=== PATIENT | female | born 1995 | race Caucasian/White ===

== ENCOUNTER 2017-01-14 11:05 | Emergency (ER) | payer OTHER ==
[2017-01-14 11:19] VITALS: BP 109/55; PULSE 64; TEMP 98.1; BMI 31.8
--- NOTE | 2017-01-14 12:01 | PDOC ---
History of Present Illness - General Chief Complaint: Back Pain Stated Complaint: BACK PAIN Time Seen by Provider: 01/14/17 11:33 History Source: Patient Exam Limitations: No Limitations - History of Present Illness Initial Comments: 01/14/17 11:56 21 yr female with c/o low back pain for 3 days no urine complaints, c/o constipation. Pt denies abd pain neg nvd. Pt has history of back pain in the past history of spinal stenosis, states toradol helps her pain. Pt has no other medical history. Severity: mild Past History - Past Medical History Allergies/Adverse Reactions: Allergies Allergy/AdvReac Type Severity Reaction Status Date / Time No Known Allergies Allergy Verified 01/14/17 11:12 Home Medications: Ambulatory Orders Cyclobenzaprine HCl [Flexeril -] 5 mg PO TID PRN #21 tablet 01/14/17 Methylprednisolone [Medrol Dose Nathan] 4 mg PO ASDIR #21 tablet 01/14/17 Anemia: No Asthma: No Cancer: No Cardiac Disorders: No CVA: No COPD: No CHF: No Dementia: No Diabetes: No GI Disorders: No Disorders: No HTN: No Hypercholesterolemia: No Liver Disease: No Seizures: No Thyroid Disease: No - Surgical History Orthopedic Surgery: Yes (RT HAND RECONSTRUCTIVE SX) - Family Disease History Family Disease History: Respiratory: Grandparents (copd mat gm) - Immunization History Immunization Up to Date: Yes - Suicide/Smoking/Psychosocial Hx Smoking Status: No Smoking History: Never smoked Have you smoked in the past 12 months: No Number of Cigarettes Smoked Daily: 0 Information on smoking cessation initiated: No Hx Alcohol Use: No Drug/Substance Use Hx: No Substance Use Type: None Hx Substance Use Treatment: No Review of Systems - Review of Systems Able to Perform ROS?: Yes Is the patient limited Panamanian proficient: No Constitutional: No: Symptoms Reported HEENTM: No: Symptoms Reported Respiratory: No: Symptoms reported Cardiac (ROS): No: Symptoms Reported ABD/GI: No: Symptoms Reported : No: Symptoms Reported Musculoskeletal: Yes: See HPI, Back Pain Integumentary: No: Symptoms Reported *Physical Exam - Vital Signs Last Vital Signs Temp Pulse Resp BP Pulse Ox 98.1 F 64 16 109/55 100 01/14/17 11:12 01/14/17 11:12 01/14/17 11:12 01/14/17 11:12 01/14/17 11:12 - Physical Exam General Appearance: Yes: Nourished, Appropriately Dressed HEENT: positive: EOMI, NAHID Neck: positive: Supple. negative: Tender Respiratory/Chest: positive: Lungs Clear, Normal Breath Sounds. negative: Chest Tender Cardiovascular: positive: Regular Rhythm, Regular Rate Gastrointestinal/Abdominal: positive: Normal Bowel Sounds, Soft Musculoskeletal: positive: Normal Inspection Extremity: positive: Normal Capillary Refill, Normal Inspection, Normal Range of Motion Integumentary: positive: Normal Color, Dry, Warm Neurologic: positive: Fully Oriented, Alert, Normal Mood/Affect, Normal Response , Motor Strength 5/5, Other (neg SLR bilaterally, neg spinal tenderness, TTP lumbar paraspinal soft tissue, no rashes) Medical Decision Making - Medical Decision Making 01/14/17 11:58 cc: low back pain 3 days not relieved with tylenol or motrin pt with c/o constipation no diarrhea neg fever or vomiting denies bowel or bladder dysfunction neg leg weakness or numbness neg saddle anesthesias will r/o and give toradol if negative refer to neurology *DC/Admit/Observation/Transfer Diagnosis at time of Disposition: Back pain - Discharge Dispostion Disposition: HOME Condition at time of disposition: Good - Prescriptions Prescriptions: Cyclobenzaprine HCl [Flexeril -] 5 mg PO TID PRN #21 tablet PRN Reason: Muscle Spasms Methylprednisolone [Medrol Dose Nathan] 4 mg PO ASDIR #21 tablet - Referrals Referrals: Mahad Fitzgerald [Primary Care Provider] - Srinivasan Upton MD [Staff Physician] - - Patient Instructions Additional Instructions: follow with the neurologist take flexeril for muscle spasm take medrol dose pack for pain start today avoid any heavy lifting or bending apply warm compresses to lower back as needed - Post Discharge Activity Forms/Work/School Notes: Back to Work
[2017-01-14] MEDS ORDERED: KETOROLAC TROMETHAMINE 60 MG/2 ML VIAL IM ONE (12:23)
== END 2017-01-14 12:55 | disposition home or self-care (01) ==
LOC: JERFT 11:05
PROC: 3E0233Z Introduction of Anti-inflammatory into Muscle, Percutaneous Approach (ICD-10-PCS; principal; 2017-01-14)
DX: M54.5 Low back pain (principal)
CPT/HCPCS: 84703; 99281-25

== ENCOUNTER 2019-03-10 12:16 | Emergency (ER) | payer OTHER ==
[2019-03-10 12:38] VITALS: BP 111/60; PULSE 107; TEMP 98.2; BMI 32.2
[2019-03-10] MEDS ORDERED: IBUPROFEN 400 MG TABLET (FP) PO ONE (13:58)
[2019-03-10] MEDS ORDERED: diazePAM 5 MG TABLET PO ONE (14:05)
[2019-03-10] MEDS ORDERED: HYDROmorphone HCL CARPU-JECT 2 MG/1 ML DISP.SYRIN IM ONE (14:05)
[2019-03-10] MEDS ORDERED: ONDANSETRON *ODT* 4 MG TABLET SL ONE ×2 (14:06→15:57)
[2019-03-10] MEDS ORDERED: ONDANSETRON *ODT* 4 MG TABLET ONE ×2 (14:13→15:57)
[2019-03-10] MEDS ORDERED: diazePAM 5 MG TABLET ONE (14:13)
[2019-03-10] MEDS ORDERED: HYDROmorphone HCl 2 MG/ML VIAL ONE (14:22)
--- NOTE | 2019-03-10 15:47 | PDOC ---
History of Present Illness - General Chief Complaint: Vaginal Sxs Stated Complaint: PAIN Time Seen by Provider: 03/10/19 13:05 History Source: Patient Past History - Travel Traveled outside of the country in the last 30 days: No Close contact w/someone who was outside of country & ill: No - Past Medical History Allergies/Adverse Reactions: Allergies Allergy/AdvReac Type Severity Reaction Status Date / Time No Known Allergies Allergy Verified 03/10/19 12:38 Home Medications: Ambulatory Orders Cyclobenzaprine HCl [Flexeril -] 5 mg PO TID PRN #21 tablet 01/14/17 Methylprednisolone [Medrol Dose Nathan] 4 mg PO ASDIR #21 tablet 01/14/17 Anemia: No Asthma: No Cancer: No Cardiac Disorders: No CVA: No COPD: No CHF: No Dementia: No Diabetes: No GI Disorders: No Disorders: No HTN: No Hypercholesterolemia: No Liver Disease: No Seizures: No Thyroid Disease: No - Surgical History Orthopedic Surgery: Yes (RT HAND RECONSTRUCTIVE SX) - Immunization History Immunization Up to Date: Yes - Psycho Social/Smoking Cessation Hx Smoking Status: No Smoking History: Never smoked Have you smoked in the past 12 months: No Number of Cigarettes Smoked Daily: 0 Information on smoking cessation initiated: No Hx Alcohol Use: No Drug/Substance Use Hx: No Substance Use Type: None Hx Substance Use Treatment: No Review of Systems - Review of Systems Able to Perform ROS?: Yes Comments:: 03/10/19 19:50 CONSTITUTIONAL: Absent: fever, chills, diaphoresis, generalized weakness, malaise, loss of appetite HEENT: Absent: rhinorrhea, nasal congestion, throat pain, throat swelling, difficulty swallowing, mouth swelling, ear pain, eye pain, visual Changes GASTROINTESTINAL: Absent: abdominal pain, abdominal distension, nausea, vomiting, diarrhea, constipation, melena, hematochezia GENITOURINARY: Present: Genital pain absent: dysuria, frequency, urgency, hesitancy, hematuria, flank pain MUSCULOSKELETAL: Absent: myalgia, arthralgia, joint swelling SKIN: Absent: rash, itching, pallor NEUROLOGIC: Absent: headache, focal weakness or paresthesias, dizziness, unsteady gait, seizure, mental status changes, bladder or bowel incontinence PSYCHIATRIC: Absent: anxiety, depression, suicidal or homicidal ideation, hallucinations. Is the patient limited Setswana proficient: No *Physical Exam - Vital Signs Last Vital Signs Temp Pulse Resp BP Pulse Ox 98.2 F 107 H 16 111/60 98 03/10/19 12:30 03/10/19 12:30 03/10/19 12:30 03/10/19 12:30 03/10/19 12:30 - Physical Exam 03/10/19 19:51 GENERAL: Well developed, well nourished. Awake and alert. No acute distress. HEENT: Normocephalic, atraumatic. PERRLA, EOMI. No conjunctival pallor. Sclera are non- icteric. Moist mucous membranes. Oropharynx is clear. PELVIC: External exam reveals a Bartholin's gland cyst on the left labia with fluctuance. Internal exam unable to be performed due to external pain. MUSCULOSKELETAL Normal range of motion at all joints. No bony deformities or tenderness. No CVA tenderness. EXTREMITIES: No cyanosis. No clubbing. No edema. No calf tenderness. SKIN: Warm and dry. Normal capillary refill. No rashes. No jaundice. NEUROLOGICAL: Alert, awake, appropriate. Cranial nerves 2-12 intact. No deficits to light touch and temperature in face, upper extremities and lower extremities. No motor deficits in the in face, upper extremities and lower extremities. Normoreflexic in the upper and lower extremities. Normal speech. Toes are down-going bilaterally. Gait is normal without ataxia. PSYCHIATRIC: Cooperative. Good eye contact. Appropriate mood and affect. Procedures - Incision and Drainage I&D Site: Left: Bartholin Betadine cleansed: Yes Anesthesia: 1% Lidocaine w/ Epi Volume(ml): 9 Blade Size: 11 Attempts: 2 (First stab incision just inferior to the cyst. Second stab incision made within the cyst.) Plain Packing: No (Word catheter placed) ED Treatment Course - Medications Given in the ED: ED Medications Discontinued Medications Generic Name Dose Route Start Last Admin Trade Name Freq PRN Reason Stop Dose Admin Diazepam 5 mg 03/10/19 14:05 03/10/19 14:15 Valium - PO 03/10/19 14:06 5 mg ONCE ONE Administration Hydromorphone HCl 1 mg 03/10/19 14:05 03/10/19 14:36 Dilaudid Injection - IM 03/10/19 14:06 1 mg Q4H ONE Administration Ibuprofen 800 mg 03/10/19 13:58 03/10/19 14:45 Motrin - PO 03/10/19 13:59 800 mg ONCE ONE Administration Ondansetron HCl 4 mg 03/10/19 14:06 03/10/19 14:15 Zofran Odt - SL 03/10/19 14:07 4 mg ONCE ONE Administration Medical Decision Making - Medical Decision Making 03/10/19 19:52 Patient is a 24-year-old female with no past medical history who presents the ER today with a bump on her labia. She states that this is been going on for a week. She states she saw both urgent care and her outreach representative who told her she had a infected Bartholin cyst. She was placed on Keflex and told to do warm water soaks. She states that is gotten larger and tender to touch. She states it hurts to sit. Denies fevers, chills, dysuria, hematuria, vaginal discharge. A/P: Bartholin cyst On exam patient with a inflamed Bartholin cyst with area of fluctuance to the left labia. This is confirmed on POCUS to be a 3 x 5 cm. Patient given Dilaudid, Valium for pain control. Verbal consent obtained. The L labia was prepared with Betadine prior to incsion. 9 mL of lidocaine used to numb the site. Stab incision made the anterior aspect of the left labia within the center of the Bartholin cyst. Large amount of pus and blood was drained from the site. Wound culture was taken. Area was explored and loculations were broken up. The abscess was then flushed with 20 mL of normal saline. Word catheter placed. Patient tolerated procedure well. Discharge home and to have patient follow-up with her DEPARTMENTAL SHIPPING CLERK this week. Advised if she cannot get an appointment with DEPARTMENTAL SHIPPING CLERK to follow-up on Wednesday in the ER for wound check. I discussed the physical exam findings, ancillary test results and final diagnoses with the patient. I answered all of the patient's questions. The patient was satisfied with the care received and felt comfortable with the discharge plan and treatment plan. The Patient agrees to follow up with the primary care physician/specialist within 24-72 hours. Return precautions were given. Discharge - Discharge Information Problems reviewed: Yes Clinical Impression/Diagnosis: Bartholin's cyst Condition: Stable Disposition: HOME - Admission No - Follow up/Referral Referrals: Juan Luis Salazar MD [Primary Care Provider] - Haider Sauceda MD [Staff Physician] - - Patient Discharge Instructions Patient Printed Discharge Instructions: DI for Bartholin Gland Cyst Additional Instructions: You had your Bartholin cyst drained today. There is a Word catheter to keep the incision open. You may continue to do warm sitz baths to help keep the area open. Please follow-up with your DEPARTMENTAL SHIPPING CLERK next week for further evaluation of the Word catheter. If you cannot get an appointment with your OB, please return to the ER for a wound check on Wednesday. You may continue your Keflex as directed. Return to the ER for fever, if the area gets bigger, pain or if you have any changes in your symptoms. - Post Discharge Activity Work/Back to School Note: Back to Work, Parent(s) Back to Work Note
== END 2019-03-10 17:06 | disposition home or self-care (01) ==
LOC: JERFT 12:16
PROC: 0W9N0ZZ Drainage of Female Perineum, Open Approach (ICD-10-PCS; principal; 2019-03-10)
DX: N75.0 Cyst of Bartholin's gland (principal)
CPT/HCPCS: 87070; 87186; 87205; 99281-25; Q0162

== ENCOUNTER 2019-10-31 02:29 | Emergency (ER) | payer OTHER ==
--- NOTE | 2019-10-31 03:03 | PDOC ---
History of Present Illness - General Chief Complaint: Back Pain Stated Complaint: BACK PAIN Time Seen by Provider: 10/31/19 03:03 History Source: Patient - History of Present Illness Initial Comments: 10/31/19 03:28 24-year-old female with chronic history of herniated disc and lower back pain complaining of lumbar sacral area pain with pain radiating down both legs. Patient reports that she had an epidural by pain management, pain has been progressively getting better until the last 2 to 3 days patient is experiencing pain worse with movement. Denies weakness or numbness to the lower extremity. No saddle anesthesia, denies incontinence of bowel or urine 10/31/19 05:28 Past History - Medical History Allergies/Adverse Reactions: Allergies Allergy/AdvReac Type Severity Reaction Status Date / Time No Known Allergies Allergy Verified 10/31/19 03:05 Home Medications: Ambulatory Orders Cyclobenzaprine HCl [Flexeril -] 5 mg PO TID PRN #21 tablet 01/14/17 Sulfamethoxazole/Trimethoprim [Bactrim Ds -] 1 tab PO BID #14 tablet 03/13/19 Diazepam [Valium] 5 mg PO Q8H #5 tablet MDD 3 10/31/19 Famotidine [Pepcid -] 40 mg PO DAILY #20 tablet 10/31/19 Methylprednisolone [Medrol Dose Nathan] 4 mg PO ASDIR #21 tablet 10/31/19 Anemia: No Asthma: No Cancer: No Cardiac Disorders: No CVA: No COPD: No CHF: No Dementia: No Diabetes: No GI Disorders: No Disorders: No HTN: No Hypercholesterolemia: No Liver Disease: No Seizures: No Thyroid Disease: No - Surgical History Orthopedic Surgery: Yes (RT HAND RECONSTRUCTIVE SX) - Immunization History Immunization Up to Date: Yes - Psycho-Social/Smoking History Smoking Status: No Smoking History: Never smoked Have you smoked in the past 12 months: No Number of Cigarettes Smoked Daily: 0 *Physical Exam - Vital Signs 10/31/19 04:32 Last Vital Signs Temp Pulse Resp BP Pulse Ox 98.5 F 68 17 105/68 96 10/31/19 02:30 10/31/19 02:30 10/31/19 02:30 10/31/19 02:30 10/31/19 02:30 - Physical Exam General Appearance: Yes: Appropriately Dressed Respiratory/Chest: positive: Lungs Clear, Normal Breath Sounds Gastrointestinal/Abdominal: positive: Normal Bowel Sounds, Soft. negative: Tender Musculoskeletal: positive: Other (paraspinal area tenderness. ). negative: Vertebral Tenderness ED Progress Note - Progress Note Progress Note: 10/31/19 05:24 A: chronic back pain with sciatica P: muscle relaxant xray lidocaine patch ortho and neurology referral. previous mri reviewed. patient lumbar disc disease. Medical Decision Making - Medical Decision Making 10/31/19 05:27 Patient reports that when she is taking her steroid she has symptom relief. Will give Medrol Dosepak. Patient also has a history of GERD will give Pepcid. Strict return precautions were reviewed with patient patient verbalized understanding patient is afebrile Discharge - Discharge Information Problems reviewed: Yes Clinical Impression/Diagnosis: Back pain Qualifiers: Back pain location: low back pain Chronicity: acute Back pain laterality: bilateral Sciatica presence: with sciatica Sciatica laterality: bilateral sciatica Qualified Code(s): M54.42 - Lumbago with sciatica, left side; M54.41 - Lumbago with sciatica, right side Sciatica Qualifiers: Laterality: bilateral Qualified Code(s): M54.31 - Sciatica, right side; M54.32 - Sciatica, left side Condition: Fair Disposition: HOME - Additional Discharge Information Prescriptions: Methylprednisolone [Medrol Dose Nathan] 4 mg PO ASDIR #21 tablet Famotidine [Pepcid -] 40 mg PO DAILY #20 tablet Diazepam [Valium] 5 mg PO Q8H #5 tablet MDD 3 - Follow up/Referral Referrals: Henry Mathias MD [Staff Physician] - Call tomorrow Juan Luis Little DO [Staff Physician] - Call tomorrow - Patient Discharge Instructions Patient Printed Discharge Instructions: Low Back Pain Additional Instructions: Do light stretches Apply ice to the area for the first 24 hours. Then alternate with ice and heat after. Take Pepcid as prescribed. Take ibuprofen Or Tylenol every 6 hours as needed for pain. Take Valium as prescribed for muscle spasm. Valium can make you sleepy, do not drive or operate heavy machinery after taking the medication. Follow-up with an orthopedic doctor if symptoms persist. A referral was given to you today. Return to the emergency room for any worsening symptoms. - Post Discharge Activity Work/Back to School Note: Back to Work, Back to School
[2019-10-31 03:05] VITALS: BP 105/68; PULSE 68; TEMP 98.5; BMI 30.6
--- NOTE | 2019-10-31 03:05 | PDOC ---
Medical Decision Making - Medical Decision Making 10/31/19 03:05 Patient seen by the advanced practice provider under my supervision. Ancillary testing reviewed as necessary. I agree with plan as outlined by the advanced practice provider. Discharge - Discharge Information Problems reviewed: Yes Clinical Impression/Diagnosis: Back pain Qualifiers: Back pain location: low back pain Chronicity: acute Back pain laterality: bilateral Sciatica presence: with sciatica Sciatica laterality: bilateral sciatica Qualified Code(s): M54.42 - Lumbago with sciatica, left side Condition: Fair Disposition: HOME - Additional Discharge Information Prescriptions: Methylprednisolone [Medrol Dose Nathan] 4 mg PO ASDIR #21 tablet Famotidine [Pepcid -] 40 mg PO DAILY #20 tablet Diazepam [Valium] 5 mg PO Q8H #5 tablet MDD 3 - Follow up/Referral Referrals: Henry Mathias MD [Staff Physician] - Call tomorrow Juan Luis Little DO [Staff Physician] - Call tomorrow - Patient Discharge Instructions Patient Printed Discharge Instructions: Low Back Pain Additional Instructions: Do light stretches Apply ice to the area for the first 24 hours. Then alternate with ice and heat after. Take Pepcid as prescribed. Take ibuprofen Or Tylenol every 6 hours as needed for pain. Take Valium as prescribed for muscle spasm. Valium can make you sleepy, do not drive or operate heavy machinery after taking the medication. Follow-up with an orthopedic doctor if symptoms persist. A referral was given to you today. Return to the emergency room for any worsening symptoms. - Post Discharge Activity Work/Back to School Note: Back to Work, Back to School
--- OUTSIDE RECORDS SUMMARY | 2019-10-31 03:07 | XMS ---
:1995 Author Organization [facility] Support Name Relationship Address Phone [employer] Unavailable [address] [place] [address] JEMAL MENDOZA MOTHER [address] [place] [address] Gloria Mendoza M [address] [phone] [place] [address] Re-disclosure Warning The records that you are about to access may contain information from federally- assisted alcohol or drug abuse programs. If such information is present, then the following federally mandated warning applies: This information has been disclosed to you from records protected by federal confidentiality rules (42 CFR part 2). The federal rules prohibit you from making any further disclosure of this information unless further disclosure is expressly permitted by the written consent of the person to whom it pertains or as otherwise permitted by 42 CFR part 2. A general authorization for the release of medical or other information is NOT sufficient for this purpose. The Federal rules restrict any use of the information to criminally investigate or prosecute any alcohol or drug abuse patient.The records that you are about to access may contain highly sensitive health information, the redisclosure of which is protected by Article 27-F of the [facility] Public Health law. If you continue you may haveaccess to information: Regarding HIV / AIDS; Provided by facilities licensed or operated by the [facility] Office of Mental Health; or Provided by the [facility] Office for People With Developmental Disabilities. If such information is present, then the following [facility] mandated warning applies: This information has been disclosed to you from confidential records which are protected by state law. State law prohibits you from making any further disclosure of this information without the specific written consent of the person to whom it pertains, or as otherwise permitted by law. Any unauthorized further disclosure in violation of state law may result in a fine or chcf sentence or both. A general authorization for the release of medical or other information is NOT sufficient authorization for further disclosure. Allergies and Adverse Reactions Type Description Substance Reaction Status Data Source(s ) No Known No Known Allergies No Known eCW3 ( [place] Allergies Allergies [facility]) No Known No Known Allergies No Known eCW3 ( [place] [facility]) No Known No Known Allergies No Known eCW3 ( [place] All[facility]ies [facility]erg[facility]) Encounters Encounter Providers Location Date Indications Data Source(s ) Outpatient [facility] 10/06/2018 eCW3 ([facility] 12:00:00 AM [facility] EDT - Care) 10/06/2018 12:00:00 AM EDT Outpatient [facility] 09/07/2018 eCW3 ([facility] 12:00:00 AM [facility] EDT - Care) 09/07/2018 12:00:00 AM EDT (ROV) Regular [facility] 08/10/2018 eCW3 ([facility] 12:00:00 AM [facility] EDT - Care) 08/10/2018 12:00:00 AM EDT Medications Medication Brand Start Product Dose Route Administrative Pharmacy [facility] Indications Reaction Description Data Name Date Form Instructions Instructions Source(s) topiramate Topira .0 active Topirama te eCW3 25 MG Oral mate 2018 {tabl 25 MG ([place] Tablet 25 MG 12:00: et} [facility] Topiramate 00 AM [facility] 25 MG EDT Care) topiramate Topira .0 active Topirama te eCW3 25 MG Oral mate 2018 {tabl 25 MG ([place] Tablet 25 MG 12:00: et} [facility] Topiramate 00 AM [facility] 25 MG EDT Care) topiramate Topira .0 active Topirama te eCW3 25 MG Oral mate 2018 {tabl 25 MG ([place] Tablet 25 MG 12:00: et} [facility] Topiramate 00 AM [facility] 25 MG EDT Care) Ranitidine UNK .0 active Ranitidine eCW3 HCl 300 MG 2018 {caps HCl 300 MG ([facility] 12:00: ule} [facility] 00 AM [facility] EDT Care) Ranitidine Raniti 1.0 active Ranitidi ne eCW3 300 MG Oral dine 2019 {caps HCl 300 MG ( [place] Capsule HCl 12:00: ule} [facility] Ranitidine 300 MG 00 AM Health HCl 300 MG EDT Care) Ranitidine Raniti 1.0 active Ranitidi ne eCW3 300 MG Oral dine 2018 {caps HCl 300 MG ( [place] Capsule HCl 12:00: ule} [facility] Ranitidine 300 MG 00 AM Health HCl 300 MG EDT Care) Diclofenac Voltar 10/06/ active Voltaren 1 % eCW3 Sodium 0.01 en 1 % 2018 ([place] [facility] MG/MG 12:00: [facility] Topical Gel 00 AM [facility] [[facility] EDT Care) Voltaren 1 % Diclofenac Voltar 10/06/ active Voltaren 1 % eCW3 Sodium 0.01 en 1 % 2018 ([place] MG/MG 12:00: [facility] Topical Gel 00 AM [facility] EDT Care) Voltaren 1 % Diclofenac Voltar 10/06/ active Voltaren 1 % eCW3 Sodium 0.01 en 1 % 2018 ([place] MG/MG 12:00: [facility] Topical Gel 00 AM [facility] [[facility]] EDT Care) Voltaren 1 % 0.3 ML EpiPen 09/24/ active EpiPen 2-Nathan eCW3 Epinephrine 2-Nathan 2017 0.3 MG/0.3ML ([place] 1 MG/ML 0.3 12:00: [facility] Auto-Inject MG/0.3 00 AM Healt h or [Epipen] ML EDT Care) EpiPen 2-Nathan 0.3 MG/0.3ML 0.3 ML EpiPen 09/24/ active EpiPen 2-Nathan eCW3 Epinephrine 2-Nathan 2017 0.3 MG/0.3ML ([place] 1 MG/ML 0.3 12:00: [facility] Auto-Inject MG/0.3 00 AM Healt h or [Epipen] ML EDT Care) EpiPen 2-Nathan 0.3 MG/0.3ML 0.3 ML EpiPen 09/24/ active EpiPen 2-Nathan eCW3 Epinephrine 2-Nathan 2017 0.3 MG/0.3ML ([place] 1 MG/ML 0.3 12:00: [facility] Auto-Inject MG/0.3 00 AM Healt h or [Epipen] ML EDT Care) EpiPen 2-Nathan 0.3 MG/0.3ML Omeprazole Omepra .0 active Omeprazo le eCW3 40 MG zole 2017 {caps 40 MG ([place] Delayed 40 MG 12:00: ule} [facility] Release 00 AM Health Oral EDT Care) Capsule Omeprazole Omepra .0 active Omeprazo le eCW3 40 MG zole 2016 {caps 40 MG ([place] Delayed 40 MG 12:00: ule} [facility] Release 00 AM [facility] Oral EDT Care) Capsule Omeprazole Omepra .0 active Omeprazo le eCW3 40 MG zole 2016 {caps 40 MG ([place] Delayed 40 MG 12:00: ule} [facility] Release 00 AM [facility] Oral EDT Care) Capsule Ondansetron Zofran 1.0 active Zofran 4 MG eCW3 4 MG Oral 4 MG {tabl ([place] Tablet ets} [place] [Zofran] Health Zofran 4 MG Care) Lo Loestrin Lo active Lo Loestrin eCW3 Fe 1 MG-10 Loestr Fe 1 MG-10 ( [place] MCG / 10 in Fe MCG / 10 MCG Ri kristy MCG 1 Health MG-10 Care) MCG / 10 MCG Lo Loestrin Lo active Lo Loestrin eCW3 Fe 1 MG-10 Loestr Fe 1 MG-10 ( [place] MCG / 10 in Fe MCG / 10 MCG Ri kristy MCG 1 Health MG-10 Care) MCG / 10 MCG Lizette UNK suspend Lizette eCW3 ed ([facility]) topiramate Topira 1.0 suspend Topiramat e eCW3 25 MG Oral mate {tabl ed 25 MG ([place] Tablet 25 MG et} [place] Topiramate Health 25 MG Care) topiramate Topira 1.0 suspend Topiramat e eCW3 25 MG Oral mate {tabl ed 25 MG ([place] Tablet 25 MG et} [place] Topiramate Health 25 MG Care) Ondansetron Zofran 1.0 active Zofran 4 MG eCW3 4 MG Oral 4 MG {tabl ([place] Tablet ets} [place] [Zofran] Health Zofran 4 MG Care) topiramate Topira 1.0 suspend Topiramat e eCW3 25 MG Oral mate {tabl ed 25 MG ([place] Tablet 25 MG et} [place] Topiramate Health 25 MG Care) Lizette UNK suspend Lizette eCW3 ed ([facility]) Lo Loestrin Lo active Lo Loestrin eCW3 Fe 1 MG-10 Loestr Fe 1 MG-10 ( [place] MCG / 10 in Fe MCG / 10 MCG Oh kristy MCG 1 Health MG-10 Care) MCG / 10 MCG Lizette UNK suspend Lizette eCW3 ed ([facility]) Ondansetron Zofran 1.0 active Zofran 4 MG eCW3 4 MG Oral 4 MG {tabl ([place] Tablet ets} [place] [Zofran] [facility] Zofran 4 MG Care) Insurance Providers Payer name Policy type Policy ID Covered Covered alliance party's Policy P keiko / Coverage alliance party ID relationship to [employer] ormation type johnson [employer] [id number] SP [id number] 01 HEALTHCARE HMO 1 Problems, Conditions, and Diagnoses Code Display Name Description Problem Effective Data Type Dates Source(s) K21.9 Gastroesophageal Gastroesophageal Problem 10/06/2018 eC W3 ([place] reflux disease reflux disease 12:00:00 AM [facility] without esophagitis without esophagitis EDT Care) [id number] Food allergy Food allergy Problem 09/24/2017 eCW3 ([place] 12:[facility]:00 AM [facility] EDT Care) K29.50 Other chronic Other chronic Problem 09/24/2017 eCW3 ([place] [facility] gastritis without gastritis without 12:00:00 AM [facility] hemorrhage hemorrhage EDT Care) E66.9 Obesity (BMI Obesity (BMI Problem 08/30/2017 eCW3 ([place] 30.0-34.9) 30.0-34.9) 12:00:00 AM [facility] EDT Care) Z91.09 Environmental Environmental Problem 08/30/2017 eCW3 ([place] allergy allergies 12:00:00 AM [facility] EDT Care) K21.9 Gastroesophageal GERD Problem 08/14/2016 eCW3 ([place] reflux disease (gastroesophageal 12:00:00 AM [facility] reflux disease) EDT Care) E55.9 Vitamin D deficiency Vitamin D deficiency Problem 02/26 eCW3 ([place] 12:00:00 AM [facility]) Z00.00 Adult health Routine physical Problem 02/27/2016 eCW3 ( [place] examination examination 18+ 12:00:00 AM [facility]) M54.40 Sciatica Low back pain with Problem 04/22/2015 eCW3 ( [place] sciatica 12:00:00 AM [facility]) XX No diagnosis Standing Order Problem 03/05/2015 eCW3 ( [facility] 12:00:00 AM [facility]) Z13.9 Screening procedure Encounter for Problem 02/04/2015 eC W3 ([place] screening, 12:00:00 AM [facility]) Social History Code Duration Value Status Description Data Source(s ) Smoking 12/14/2018 12:00:00 Never Smoker completed Never Smoker e CW3 ([facility]) Smoking 12/14/2018 12:00:00 Never Smoker completed Never Smoker e CW3 ([facility]) Smoking 12/14/2018 12:00:00 Never Smoker completed Never Smoker e CW3 ([facility]) Never Smoker completed Never Smoker eCW3 ([facility]) Never Smoker completed Never Smoker eCW3 ([facility]) Never Smoker completed Never Smoker eCW3 ([facility]) Vital Signs ID Date Data Source UNK Name Value Range Interpretation Code Description Data Source(s) Diastolic blood 76 mm[Hg] 76 mm[Hg] eCW3 ([facility]) Systolic blood 110 mm[Hg] 110 mm[Hg] eCW3 ([facility]) Body temperature 98.3 [degF] 98.3 [degF] eCW3 ( [facility]) Body mass index 33.25 kg/m2 33.25 kg/m2 eCW3 ([place] (BMI) [Ratio] [facility]) Body weight 183 [lb_av] 183 [lb_av] eCW3 ([facility]) Body height 62.20 [in_i] 62.20 [in_i] eCW3 ([facility]) Diastolic blood 72 mm[Hg] 72 mm[Hg] eCW3 ([facility]) Systolic blood 106 mm[Hg] 106 mm[Hg] eCW3 ([facility]) Body temperature 97.7 [degF] 97.7 [degF] eCW3 ( [facility]) Body mass index 33.25 kg/m2 33.25 kg/m2 eCW3 ([facility] (BMI) [Ratio] [facility]) Body weight 183 [lb_av] 183 [lb_av] eCW3 ([facility]) Body height 62.20 [in_i] 62.20 [in_i] eCW3 ([facility]) Diastolic blood 68 mm[Hg] 68 mm[Hg] eCW3 ([facility]) Systolic blood 101 mm[Hg] 101 mm[Hg] eCW3 ([facility]) Body temperature 98.0 [degF] 98.0 [degF] eCW3 ( [facility]) Body mass index 34.16 kg/m2 34.16 kg/m2 eCW3 ([facility] (BMI) [Ratio] [facility]) Body weight 188 [lb_av] 188 [lb_av] eCW3 ([facility]) Body height 62.20 [in_i] 62.20 [in_i] eCW3 ([facility]) Patient Treatment Plan of Care Planned Activity Planned Date Details Description Data Source (s) topiramate 25 MG Oral 12/01/2018 12:00:00 eCW3 ([facility]) topiramate 25 MG Oral 12/01/2018 12:00:00 eCW3 ([facility]) topiramate 25 MG Oral 12/01/2018 12:00:00 eCW3 ([facility])
[2019-10-31] MEDS ORDERED: diazePAM 5 MG TABLET PO ONE (03:27)
[2019-10-31] MEDS ORDERED: KETOROLAC TROMETHAMINE 30 MG/1 ML VIAL IM ONE (03:27)
[2019-10-31] MEDS ORDERED: diazePAM 5 MG TABLET ONE (03:48)
[2019-10-31] MEDS ORDERED: KETOROLAC TROMETHAMINE 30 MG/1 ML VIAL ONE (03:49)
[2019-10-31] MEDS ORDERED: LIDOCAINE 5% TOPICAL PATCH TP ONE (04:33)
[2019-10-31] MEDS ORDERED: LIDOCAINE 5% TOPICAL PATCH ONE (04:51)
[2019-10-31] MEDS ORDERED: LIDOCAINE PATCH REMOVAL MC SCH (22:00)
== END 2019-10-31 05:26 | disposition home or self-care (01) ==
LOC: JER 02:29
PROC: 3E0233Z Introduction of Anti-inflammatory into Muscle, Percutaneous Approach (ICD-10-PCS; principal; 2019-10-31)
DX: M54.41 Lumbago with sciatica, right side (principal); M54.42 Lumbago with sciatica, left side
CPT/HCPCS: 72100-TC-FY; 84703; 99284-25